=== PATIENT | male | born 1980 | race Caucasian/White ===

== ENCOUNTER 2018-01-24 02:45 | Emergency (ER) | payer SELFPAY ==
[2018-01-24] MEDS ORDERED: Bacitracin 500 Units/gm Oint Foilpak UD ONE ×3 (03:27→04:11)
[2018-01-24] MEDS ORDERED: Bacitracin 500 Units/gm Oint Foilpak UD TOP STA (03:28)
[2018-01-24] MEDS ORDERED: Tetanus/Diphtheria Toxoids 0.5 ml Syringe IM ONE ×3 (03:28→04:11)
[2018-01-24] MEDS ORDERED: Oxycodone/Acetaminophen 5/325 mg Tab PO STA (04:57)
[2018-01-24] MEDS ORDERED: Oxycodone/Acetaminophen 5/325 mg Tab ONE (05:02)
--- NOTE | 2018-01-24 05:05 | C.PDOC ---
History Of Present Illness 37yo male, presents to ER for evaluation of an injury to his left elbow after a mechanical fall. He denies any other injuries, head injuries, loss of consciousness due to the fall. He also denies any numbness, tingling, weakness to his left arm. Patient has no other medical complaints. PMD: Non [facility]PH Provider Time Seen by Provider: 01/24/18 03:13 Chief Complaint (Nursing): Upper Extremity Problem/Injury History Per: Patient History/Exam Limitations: no limitations Current Symptoms Are (Timing): Still Present Quality: "Pain" Exacerbating Factor(s): Strenuous Use Of Affected Area Additional History Per: Patient Past Medical History Reviewed: Historical Data, Nursing Documentation, Vital Signs Vital Signs: Last Vital Signs Temp 97.9 F 01/24/18 05:18 Pulse 62 01/24/18 05:18 Resp 18 01/24/18 05:18 BP 96/65 L 01/24/18 05:18 Pulse Ox 98 01/24/18 05:53 - Medical History PMH: No Chronic Diseases Surgical History: No Surg Hx Family History: States: No Known Family Hx - Social History Hx Alcohol Use: No Hx Substance Use: No - Immunization History Hx Tetanus Toxoid Vaccination: No Hx Influenza Vaccination: No Hx Pneumococcal Vaccination: No Review Of Systems Except As Marked, All Systems Reviewed And Found Negative. Gastrointestinal: Negative for: Vomiting Musculoskeletal: Positive for: Arm Pain (left elbow pain) Neurological: Negative for: Weakness, Numbness, Headache Physical Exam - Physical Exam Appears: Non-toxic, No Acute Distress Skin: Warm, Dry Head: Atraumatic, Normacephalic Eye(s): bilateral: Normal Inspection Neck: Supple Chest: Symmetrical Cardiovascular: Rhythm Regular Respiratory: Normal Breath Sounds Extremity: Normal ROM (FROM at left elbow), Tenderness (diffuse tenderness noted to left elbow ), No Deformity, Swelling (mild swelling to left elbow. abrasion noted over olecrenon region) Pulses: Left Radial: Normal, Right Radial: Normal Neurological/Psych: Oriented x3, Normal Speech, Normal Motor, Normal Sensation ED Course And Treatment O2 Sat by Pulse Oximetry: 98 (RA) Pulse Ox Interpretation: Normal Progress Note: TDAP booster given. Patient treated with 1tab percocet PO for pain. XR left elbow ordered. 0405 XR reviewed and shows anteior and posterior fat pad, suspicion for fracture. Patient to be placed in long arm posterior splint that was applied by CP and check by me. XR results dicussed with patient who expresses understanding; referral for Dr. Jose Peck provided. Patient is stable for discharge home and is instructed to follow up with Dr. Jose Peck in 2 -3 days Disposition - Disposition Referrals: Leonard Dodson MD [Staff Provider] - Disposition: HOME/ ROUTINE Disposition Time: 05:03 Condition: STABLE Additional Instructions: Follow up with Orthopedist within 2-3 days. Return to ED if feel worse. Prescriptions: traMADol [Ultram] 50 mg PO Q6 #20 tab Instructions: Elbow Fracture (DC) Forms: [employer] ([place]) - Clinical Impression Clinical Impression: Elbow fracture, left - PA / ADJUNCT FACULTY FOR MEDICAL TERMINOLOGY / Resident Statement MD/DO has reviewed & agrees with the documentation as recorded. - Scribe Statement The provider has reviewed the documentation as recorded by the Scribe (Joy Trotter) All medical record entries made by the Scribe were at my direction and personally dictated by me. I have reviewed the chart and agree that the record accurately reflects my personal performance of the history, physical exam, medical decision making, and the department course for this patient. I have also personally directed, reviewed, and agree with the discharge instructions and disposition.
[2018-01-24 05:20] VITALS: BP 96/65; PULSE 62; RESP 18; TEMP 97.9
[2018-01-24 05:48] VITALS: O2SAT 98
--- NOTE | 2018-01-24 12:06 | RAD ---
PROCEDURE: Radiographs of the left elbow. HISTORY: fall COMPARISON: No prior. FINDINGS: BONES: No displaced fracture identified. However, displaced of the anterior as well as posterior fat pad suggests joint effusions which may indicate a call fractures not visualized. JOINTS: No subluxation or dislocation. SOFT TISSUES: Normal. JOINT EFFUSION: As above in bone section. OTHER FINDINGS: None IMPRESSION: No displaced fracture identified. Joints effusions however may indicate occult fracture is not visualized by radiography. Consider follow-up CT or MRI further characterization.
== END 2018-01-24 05:20 | disposition home or self-care (01) ==
LOC: C.ER 02:45
DX: S42.402A Unspecified fracture of lower end of left humerus, initial encounter for closed fracture (principal); W01.0XXA Fall on same level from slipping, tripping and stumbling without subsequent striking against object, initial encounter; Y92.9 Unspecified place or not applicable; Z23 Encounter for immunization